=== PATIENT | female | born 1965 | race Caucasian/White ===

== ENCOUNTER 2016-09-09 08:38 | Emergency (ER) | payer BC ==
[~2016-09-09] VITALS: Ht 152.4 cm; Wt 56.5 kg
[2016-09-09 09:03] LABS: HEMATOCRIT 40.6 % (36.0-46.0); MCH 30.5 PG (29.0-34.0); MCHC 33.7 G/DL (30.0-36.0); MCV 90.4 FL (83-99); PLATELET COUNT 303 K/uL (156-360); RBC DIS.WIDTH-CV 12.5 % (11.8-14.6); RBC DIS.WIDTH-SD 40.8 % (39-53); RED BLOOD COUNT 4.49 M/uL (3.80-5.20); WHITE BLOOD COUNT 6.1 K/uL (4.1-10.2)
[2016-09-09 10:13] LABS: ANION GAP 12 MEQ/L (2-14); CHLORIDE 105 MEQ/L (99-109); POTASSIUM 3.5 MEQ/L (3.7-5.4); SAMPLE HEMOLYSIS CHECK 0; SAMPLE ICTERIC CHECK 0; SAMPLE LIPEMIA CHECK 0; SODIUM 143 MEQ/L (136-147); TOTAL BILIRUBIN 0.7 MG/DL (0.0-1.0)
[2016-09-09 10:19] LABS: ALKALINE PHOSPHATASE 60 IU/L (3-129); GLUCOSE 101 mg/dL (70-99); UREA NITROGEN (BUN) 14 mg/dL (9-23)
[2016-09-09 10:20] LABS: GFR ESTIMATE (CALCULATED) > 59 mL/min/
[2016-09-09 10:24] LABS: QUANTITATIVE HCG < 4.0 MIU/ML
[2016-09-09 11:23] LABS: ADD MIUA? YES; BILIRUBIN NEGATIVE; BLOOD MODERATE; GLUCOSE (STRIP) NEGATIVE; KETONES NEGATIVE; LEUKOCYTES TRACE; NITRITE NEGATIVE; PROTEIN (STRIP) NEGATIVE; SPECIFIC GRAVITY 1.012 (1.000-1.030); UROBILINOGEN 0.2 MG/DL (0.2-1.0)
[2016-09-09 11:36] LABS: COLOR PALE STRAW ((YELLOW))
[2016-09-09 11:49] LABS: BACTERIA RARE /HPF; EPITHELIAL CELLS NONE SEEN /HPF; MUCUS NONE SEEN /LPF; UCUL ADDED? NO; WHITE BLOOD CELLS 0-5 /HPF (0-5)
[2016-09-09] MEDS ORDERED: MACROBID100 MG PO (14:22)
[2016-09-09] MEDS ORDERED: PYRIDIUM100 MG PO (14:32)
[2016-09-09 14:51] VITALS: BP 158/89
== END 2016-09-09 14:59 | disposition home or self-care (01) ==
LOC: EXP 08:38 → EME 08:38 → EXP 14:59
DX: N39.0 Urinary tract infection, site not specified (principal); I10 Essential (primary) hypertension; Z88.1 Allergy status to other antibiotic agents; Z88.2 Allergy status to sulfonamides
CPT/HCPCS: 74020; 76856; 80053; 81003; 84702; 85027; 99281; 99285; J1885